=== PATIENT | male | born 1955 | race Caucasian/White ===

== ENCOUNTER 2016-09-18 10:50 | Emergency (ER) | payer MEDICAID ==
[2016-09-18] MEDS ORDERED: KETOROLAC 60 MG/2 ML VIAL IM ONE (12:08)
== END 2016-09-18 13:13 | disposition home or self-care (01) ==
LOC: ER 10:50
DX: S20.211A Contusion of right front wall of thorax, initial encounter (principal); V49.59XA Passenger injured in collision with other motor vehicles in traffic accident, initial encounter; Y92.410 Unspecified street and highway as the place of occurrence of the external cause; M94.0 Chondrocostal junction syndrome [Tietze]; Z87.891 Personal history of nicotine dependence
CPT/HCPCS: 96372